=== PATIENT | male | born 1995 | race Caucasian/White ===

== ENCOUNTER 2022-06-11 12:42 | Emergency (ER) | payer BC ==
[~2022-06-11] VITALS: Ht 175.3 cm; Wt 127.9 kg
[2022-06-11] MEDS ORDERED: SODIUM CHLORIDE 0.9% 1000ML 1,000 ML IV STA (13:15)
[2022-06-11] MEDS ORDERED: KETOROLAC TROMETHAMINE 30 MG/ML VIAL IV STA (13:15)
[2022-06-11 13:50] LABS: BASOPHILS # (AUTO) 0.1 (0.0-0.1); BASOPHILS % 0.7 % (0.0-1.0); EOSINOPHILS # (AUTO) 0.1 (0.0-0.4); EOSINOPHILS % 0.7 % (0.0-6.0); HEMATOCRIT 50.1 % (38.2-49.6); HEMOGLOBIN 16.7 g/dL (14.0-18.0); LYMPHOCYTES # (AUTO) 1.7 (1.0-3.2); LYMPHOCYTES % 24.6 % (18.0-39.1); MEAN CORPUSCULAR HGB CONC 33.3 g/dL (31-35); MEAN CORPUSCULAR VOLUME 90.1 fL (81-99); MONOCYTES # (AUTO) 0.6 (0.2-0.8); MONOCYTES % 8.2 % (4.4-11.3); NEUTROPHILS # (AUTO) 4.5 (2.1-6.9); NEUTROPHILS % 65.5 % (38.7-80.0); PLATELET COUNT 246 x10e3/uL (140-360); RED BLOOD COUNT 5.56 x10e6/uL (4.3-5.7)
[2022-06-11 13:53] LABS: CLARITY,URINE CLEAR (CLEAR); COLOR,URINE YELLOW (YELLOW); KETONES,URINE NEGATIVE (NEGATIVE); LEUKOCYTE ESTERASE ,URINE NEGATIVE (NEGATIVE); NITRITE,URINE NEGATIVE (NEGATIVE); PROTEIN,URINE DIPSTICK NEGATIVE (NEGATIVE); URINE UROBILINOGEN 0.2 mg/dL (0.2 - 1)
[2022-06-11 14:08] LABS: ALBUMIN 4.2 g/dL (3.5-5.0); ALBUMIN/GLOBULIN RATIO 1.3 (0.8-2.0); ANION GAP 13.7 mmol/L (8-16); CALCIUM 9.4 mg/dL (8.4-10.2); CREATININE, SERUM 0.95 mg/dL (0.72-1.25); POTASSIUM 3.7 mmol/L (3.5-5.1)
[2022-06-11 14:17] LABS: RBC,URINE 0-5 /HPF (0-5); WBC,URINE (MAN) 0-5 /HPF (0-5)
[2022-06-11] MEDS ORDERED: IOPAMIDOL 370 MG/ML 100 ML INFUS..BTL INJ ONE (14:49)
[2022-06-11] MEDS ORDERED: METHOCARBAMOL750 MG PO (15:31)
== END 2022-06-11 16:26 | disposition home or self-care (01) ==
LOC: ER 12:49
DX: R10.31 Right lower quadrant pain (principal); M79.18 Myalgia, other site; K58.9 Irritable bowel syndrome, unspecified
CPT/HCPCS: 36415; 74177; 80053; 81001; 85025; 87086; 99284; J1885; J7030; Q9967

== ENCOUNTER 2022-06-18 23:32 | Emergency (ER) | payer BC ==
[~2022-06-18] VITALS: Ht 185.4 cm; Wt 131.5 kg
[~2022-06-18 23:32] MED LIST: METHOCARBAMOL750 MG PO
[2022-06-19 01:03] VITALS: BP 129/81
== END 2022-06-19 01:06 | disposition home or self-care (01) ==
LOC: ER 23:34
DX: S00.83XA Contusion of other part of head, initial encounter (principal); R51.9 Headache, unspecified; W20.8XXA Other cause of strike by thrown, projected or falling object, initial encounter; Y92.89 Other specified places as the place of occurrence of the external cause; K58.9 Irritable bowel syndrome, unspecified
CPT/HCPCS: 70450; 99284